=== PATIENT | female | born 1975 | race Caucasian/White ===

== ENCOUNTER → 2016-10-26 | Day surgery (SDC) | payer OTHER ==
[~2016-10-26] VITALS: Ht 165.1 cm; Wt 82.8 kg
[~2016-10-26] MED LIST: *MEPERIDINE 25 MG INJ VIAL PERIprocedural Use ONLY ONE; ACETAMINOPHEN 1000 MG/100 ML VIAL IV ONE; ACETAMINOPHEN 325MG/HYDROcodone 7.5MG/15ML UDC PO PRN; AMPICILLIN/SULBAC 3 GM/NS 100 ML IV PRN; CHLORHEXIDINE GLUCONATE 2 % 1 PACK (2 CLOTHS) TOPICAL PRN; DO NOT ADM ANY ANTICOAGULANT DRUGS PRN; FAMOTIDINE 20 MG/2 ML VIAL ONE; INSULIN HUMAN REGULAR 1,000 UNITS/10 ML VIAL SQ PRN; LACTATED RINGER'S 1000 ML IV PRN; METOPROLOL TARTRATE 25 MG TAB PO PRN; MIDAZOLAM HCL 2 MG/2 ML VIAL ONE; ONDANSETRON HCL 4 MG/2 ML VIAL ONE; POVIDONE IODINE 5% (ANTISEPSIS KIT) 4 APPLICATIONS EACH NARE PRN; PROPOFOL 200 MG/20 ML AMP IV ONE; SODIUM CHLORID 0.9% 500 ML IV PRN; VITA1000 PO; diphenhydrAMINE HCL 50 MG/ML VIAL ONE; fentaNYL CITRATE 250 MCG/5 ML AMP ONE
[2016-10-26 09:49] VITALS: BP 134/72; PULSE 69; RESP 18; TEMP 97.9; O2SAT 100
[2016-10-26 15:30] VITALS: BP 113/64; PULSE 62; RESP 16; TEMP 97.6; O2SAT 100
--- NOTE | 2016-10-28 12:21 | MP ---
cc: SAVITA SR M.D. DATE OF OPERATION October 26, [address] Savita sr PREOPERATIVE DIAGNOSIS 1. Adenotonsillar hypertrophy. 2. Chronic tonsillitis. POSTOPERATIVE DIAGNOSIS 1. Adenotonsillar hypertrophy. 2. Chronic tonsillitis. OPERATION PERFORMED Adenotonsillectomy. INDICATIONS As documented in the history and physical. DESCRIPTION OF OPERATION The patient was taken to OR #6 and placed in the supine position. Following induction of general anesthesia and intubation, a shoulder roll, a Terrell head drape and a McIvor mouth gag were put in place. The tonsils were removed using the ArthroCare Coblator technique. A few sites of venous and arterial bleeding were cauterized using the bipolar cautery until hemostasis was complete. Following this the adenoids were removed using the suction Bovie at 40 cabrales. The stomach was aspirated of a few cc's of cloudy gastric contents using a #18 [place] sump NG tube and when this was completed the mouth gag was removed and the procedure was terminated. The patient was reversed from anesthesia and taken to Recovery in good condition. There were no complications. Blood loss was less than 10 mL. MD JESUS Hankins/POLO /1:30 PM /12:16 PM
== END | disposition home or self-care (01) ==
LOC: PHSDC 08:42
PROVIDERS: ATTEND Otolaryngology
DX: J35.3 Hypertrophy of tonsils with hypertrophy of adenoids (principal); J35.01 Chronic tonsillitis
CPT/HCPCS: 00170; 42821; 88304; J0131; J0295; J1200; J2175; J2250; J2405; J3010; J7120